=== PATIENT | female | born 1965 | race Two or more races ===

== ENCOUNTER 2016-05-05 23:35 | Emergency (ER) | payer MEDICAID ==
[~2016-05-05] VITALS: Ht 160 cm; Wt 96.6 kg
[~2016-05-05 23:35] MED LIST: NOR10T GT
[2016-05-05 23:50] VITALS: BP 127/77
[2016-05-06] MEDS ORDERED: TETRACAINE HCL 0.5% OPTH(EYE) SOLN 4ML RIGHTEYE ONE (02:15)
[2016-05-06] MEDS ORDERED: GENTAMICIN OPTH sol 0.3% 5ml RIGHTEYE ONE (03:00)
== END 2016-05-06 03:09 | disposition home or self-care (01) ==
LOC: ER 23:36
DX: H10.9 Unspecified conjunctivitis (principal); T15.91XA Foreign body on external eye, part unspecified, right eye, initial encounter; H57.8 Other specified disorders of eye and adnexa; X58.XXXA Exposure to other specified factors, initial encounter; Y93.89 Activity, other specified; Y99.8 Other external cause status; Y92.89 Other specified places as the place of occurrence of the external cause